=== PATIENT | male | born 1960 | race African-American/Black ===

== ENCOUNTER 2018-11-03 10:09 | Inpatient (IN) | payer MEDICAID ==
[~2018-11-03] VITALS: Ht 172.7 cm; Wt 95.3 kg
[~2018-11-03 10:09] MED LIST: AMLO10TA80 PO; CARV25TA47 PO; DIGO125T82 PO; ELIQUIS 5 MG PO; FURO-151 PO; GLIP5TAB12 PO; HYDR100T26 PO; LISI10TA5 PO; LOSA50TA20 PO; METO-539 PO; POTA10TA11 PO
[2018-11-03 11:14] LABS: BASOPHILS % 0.5 % (0.0-2.0); EOSINOPHILS % 1.6 % (0.0-5.0); HEMATOCRIT. 41.1 % (42.0-52.0); HEMOGLOBIN. 13.2 g/dL (14.0-18.0); LYMPHOCYTES % 10.9 % (20.0-50.0); MEAN CORPUSCULAR HEMOGLOBIN 29.2 pg (28.0-32.0); MEAN CORPUSCULAR VOLUME 90.9 fL (80.0-94.0); MEAN PLATELET VOLUME 9.1 fl (7.4-10.4); MONOCYTES % 6.2 % (2.0-8.0); NEUTROPHILS % 80.8 % (40.0-76.0); PLATELET 152 x1000/uL (130-400); RED BLOOD CELL COUNT 4.52 mill/uL (4.7-6.1); RED CELL DISTRIBUTION WIDTH 16.4 % (11.6-14.6)
[2018-11-03 11:24] LABS: CHLORIDE 107 mEq/L (98-107)
[2018-11-03] MEDS ORDERED: FUROSEMIDE 40MG/4ML VIAL IVP NR (14:00)
[2018-11-03] MEDS ORDERED: NA PHOS,M-B/NA PHOS,DI-BA ENEMA 118ML PR PRN (14:15)
[2018-11-03] MEDS ORDERED: DOCUSATE SODIUM 100MG CAPSULE PO PRN (14:15)
[2018-11-03] MEDS ORDERED: MORPHINE SULFATE 4 MG/ML CPJ (NOT FOR IM USE) IV PRN (14:15)
[2018-11-03] MEDS ORDERED: LORAZEPAM 2MG/ML CPJ IV PRN (14:15)
[2018-11-03] MEDS ORDERED: GUAIFENESIN 200MG/10ML SUGAR FREE UDC PO PRN (14:15)
[2018-11-03] MEDS ORDERED: ACETAMINOPHEN 325MG TABLET PO PRN (14:15)
[2018-11-03] MEDS ORDERED: DIPHENHYDRAMINE 50MG/ML VIAL IV PRN (14:15)
[2018-11-03] MEDS ORDERED: IPRATROPIUM/ALBUTEROL 0.5-3(2.5)MG/3ML NEB INH PRN (14:15)
[2018-11-03] MEDS ORDERED: MAGNESIUM/ALUMINUM HYDROXIDE/SIMETHICONE 30ML UDC PO PRN (14:15)
[2018-11-03] MEDS ORDERED: ENOXAPARIN 40MG/0.4ML SYR SUBCUT SCH (14:15)
[2018-11-03] MEDS ORDERED: CLONIDINE 0.1MG TABLET PO PRN (14:15)
[2018-11-03] MEDS ORDERED: ONDANSETRON HCL 4MG/2ML INJ IV PRN (14:15)
[2018-11-03] MEDS ORDERED: DILTIAZEM HCL 5MG/ML 5ML VIAL IV PRN (16:15)
[2018-11-03 16:17] VITALS: BP 158/102
[2018-11-03 16:54] LABS: *AMPHETAMINES SCREEN URINE NEGATIVE (NEGATIVE); *BARBITURATES SCREEN URINE NEGATIVE (NEGATIVE); *BENZODIAZEPINES SCREEN URINE NEGATIVE (NEGATIVE); *COCAINE SCREEN URINE NEGATIVE (NEGATIVE); CANNABINOID URINE SCREEN NEGATIVE (NEGATIVE); METHADONE URINE SCREEN NEGATIVE (NEGATIVE); OPIATES URINE SCREEN NEGATIVE (NEGATIVE)
[2018-11-03 16:55] LABS: PHENCYCLIDINE URINE SCREEN NEGATIVE (NEGATIVE)
[2018-11-03] MEDS ORDERED: ASPI-1158 PO (17:33)
[2018-11-03] MEDS ORDERED: ATOR80TA MT (17:33)
[2018-11-03] MEDS: CARVEDILOL 25MG TABLET PO SCH (18:22)
[2018-11-03] MEDS: DIGOXIN 125MCG TABLET PO SCH (18:22)
[2018-11-03] MEDS: APIXABAN 5 MG TABLET PO SCH (18:22)
[2018-11-03 20:00] VITALS: BP 133/83
[2018-11-03] MEDS: HYDROCODONE/ACETAMINOPHEN 5/325MG TABLET PO PRN (20:42)
[2018-11-03] MEDS: FUROSEMIDE 40MG/4ML VIAL IV SCH (20:43)
[2018-11-03 21:34] VITALS: BP 130/82
[2018-11-03] MEDS: HYDRALAZINE HCL 50MG TABLET PO SCH (21:38)
[2018-11-04] VITALS: BP 127/77
[2018-11-04 04:00] VITALS: BP 127/84
[2018-11-04 06:17] LABS: BASOPHILS % 0.6 % (0.0-2.0); EOSINOPHILS % 2.7 % (0.0-5.0); HEMATOCRIT. 38.8 % (42.0-52.0); HEMOGLOBIN. 12.5 g/dL (14.0-18.0); LYMPHOCYTES % 19.7 % (20.0-50.0); MEAN CORPUSCULAR VOLUME 89.8 fL (80.0-94.0); MEAN PLATELET VOLUME 9.1 fl (7.4-10.4); MONOCYTES % 9.8 % (2.0-8.0); NEUTROPHILS % 67.2 % (40.0-76.0); PLATELET 141 x1000/uL (130-400); RED BLOOD CELL COUNT 4.32 mill/uL (4.7-6.1); RED CELL DISTRIBUTION WIDTH 15.6 % (11.6-14.6)
[2018-11-04 06:28] LABS: CHLORIDE 103 mEq/L (98-107)
[2018-11-04] MEDS: HYDRALAZINE HCL 50MG TABLET PO SCH ×3 (06:30→21:23)
[2018-11-04] MEDS: FUROSEMIDE 40MG/4ML VIAL IV SCH ×2 (06:31→16:24)
[2018-11-04 06:39] LABS: LDL CHOLESTEROL 88 mg/dL (5-100)
[2018-11-04 06:40] LABS: HDL CHOLESTEROL 33 mg/dL (40-59)
[2018-11-04 06:43] LABS: T4 FREE 1.21 ng/dL (0.76-1.46)
[2018-11-04 08:00] VITALS: BP 147/82
[2018-11-04] MEDS: CARVEDILOL 25MG TABLET PO SCH ×2 (08:26→21:23)
[2018-11-04] MEDS: LOSARTAN POTASSIUM 100 MG TABLET PO SCH (08:26)
[2018-11-04] MEDS: ASPIRIN 81MG EC TABLET PO SCH (08:27)
[2018-11-04] MEDS: APIXABAN 5 MG TABLET PO SCH ×2 (08:27→16:24)
[2018-11-04 12:00] VITALS: BP 141/79
[2018-11-04 16:46] VITALS: BP 139/87
[2018-11-04] MEDS: DIGOXIN 125MCG TABLET PO SCH (17:05)
[2018-11-04 20:00] VITALS: BP 134/85
[2018-11-05] VITALS: BP 138/85
[2018-11-05] MEDS: HYDROCODONE/ACETAMINOPHEN 5/325MG TABLET PO PRN (03:19)
[2018-11-05 04:00] VITALS: BP 135/73
[2018-11-05] MEDS: HYDRALAZINE HCL 50MG TABLET PO SCH (06:17)
[2018-11-05] MEDS: FUROSEMIDE 40MG/4ML VIAL IV SCH (06:32)
[2018-11-05 08:07] LABS: EOSINOPHILS % 2.9 % (0.0-5.0); HEMATOCRIT. 41.5 % (42.0-52.0); HEMOGLOBIN. 13.2 g/dL (14.0-18.0); LYMPHOCYTES % 13.3 % (20.0-50.0); MEAN CORPUSCULAR HEMOGLOBIN 28.8 pg (28.0-32.0); MEAN CORPUSCULAR VOLUME 90.3 fL (80.0-94.0); MEAN PLATELET VOLUME 8.7 fl (7.4-10.4); MONOCYTES % 7.6 % (2.0-8.0); NEUTROPHILS % 75.2 % (40.0-76.0); PLATELET 169 x1000/uL (130-400); RED BLOOD CELL COUNT 4.59 mill/uL (4.7-6.1); RED CELL DISTRIBUTION WIDTH 15.6 % (11.6-14.6)
[2018-11-05 08:30] VITALS: BP 151/85
[2018-11-05] MEDS: ASPIRIN 81MG EC TABLET PO SCH (08:41)
[2018-11-05] MEDS: LOSARTAN POTASSIUM 100 MG TABLET PO SCH (08:41)
[2018-11-05] MEDS: APIXABAN 5 MG TABLET PO SCH (08:41)
[2018-11-05] MEDS: CARVEDILOL 25MG TABLET PO SCH (08:41)
[2018-11-05 10:33] VITALS: BP 151/85
== END 2018-11-05 12:00 | disposition home or self-care (01) | DRG 133 ==
LOC: ER 10:09 → EDBEDREQTM 14:18 → EDBEDREQ 14:18 → ENRESERV 15:27 → 8WST 16:00
PROVIDERS: ADMIT Internal Medicine; ATTEND Internal Medicine
DX: J96.00 Acute respiratory failure, unspecified whether with hypoxia or hypercapnia (principal); I50.43 Acute on chronic combined systolic (congestive) and diastolic (congestive) heart failure; E11.22 Type 2 diabetes mellitus with diabetic chronic kidney disease; I27.20 Pulmonary hypertension, unspecified; I08.1 Rheumatic disorders of both mitral and tricuspid valves; I13.0 Hypertensive heart and chronic kidney disease with heart failure and stage 1 through stage 4 chronic kidney disease, or unspecified chronic kidney disease; N18.9 Chronic kidney disease, unspecified; I48.2 Chronic atrial fibrillation; R56.9 Unspecified convulsions; I25.10 Atherosclerotic heart disease of native coronary artery without angina pectoris; Z79.01 Long term (current) use of anticoagulants; Z79.82 Long term (current) use of aspirin; Z79.84 Long term (current) use of oral hypoglycemic drugs; Z79.899 Other long term (current) drug therapy; Z82.49 Family history of ischemic heart disease and other diseases of the circulatory system; Z99.2 Dependence on renal dialysis
CPT/HCPCS: 36415; 71045; 80048; 80061; 80162; 80305; 83036; 83735; 83880; 84439; 84443; 84484; 93005; 93306; 93970; 96374; 99285; J1940

== ENCOUNTER 2019-06-28 14:04 | Inpatient (IN) | payer MEDICAID ==
[~2019-06-28] VITALS: Ht 172.7 cm; Wt 106.6 kg
[~2019-06-28 14:04] MED LIST changes: +ASPI-1158 PO; +ATOR80TA MT; -LOSA50TA20 PO; +LOSA50TA41 PO
[2019-06-28] MEDS ORDERED: FUROSEMIDE 40MG/4ML VIAL IV ONE (14:45)
[2019-06-28] MEDS ORDERED: NITROGLYCERIN OINT 1GM/INCH UDPKT TD ONE (14:45)
[2019-06-28 15:01] LABS: BASOPHILS % 1.1 % (0.0-2.0); EOSINOPHILS % 1.5 % (0.0-5.0); HEMATOCRIT. 37.8 % (42.0-52.0); HEMOGLOBIN. 12.3 g/dL (14.0-18.0); LYMPHOCYTES % 13.5 % (20.0-50.0); MEAN CORPUSCULAR HEMOGLOBIN 29.2 pg (28.0-32.0); MEAN CORPUSCULAR VOLUME 89.7 fL (80.0-94.0); MEAN PLATELET VOLUME 8.7 fl (7.4-10.4); MONOCYTES % 6.3 % (2.0-8.0); NEUTROPHILS % 77.6 % (40.0-76.0); PLATELET 151 x1000/uL (130-400); RED BLOOD CELL COUNT 4.21 mill/uL (4.7-6.1); RED CELL DISTRIBUTION WIDTH 16.7 % (11.6-14.6)
[2019-06-28 15:05] LABS: CHLORIDE 106 mEq/L (98-107); INR 1.2
[2019-06-28] MEDS ORDERED: IPRATROPIUM/ALBUTEROL 0.5-3(2.5)MG/3ML NEB HHN PRN (17:15)
[2019-06-28] MEDS ORDERED: CLONIDINE 0.1MG TABLET PO PRN (17:15)
[2019-06-28] MEDS ORDERED: LORAZEPAM 0.5MG TABLET PO PRN (17:15)
[2019-06-28] MEDS ORDERED: MAGNESIUM/ALUMINUM HYDROXIDE/SIMETHICONE 30ML UDC PO PRN (17:15)
[2019-06-28] MEDS ORDERED: GUAIFENESIN 200MG/10ML SUGAR FREE UDC PO PRN (17:15)
[2019-06-28] MEDS ORDERED: ONDANSETRON HCL 4MG/2ML INJ IV PRN (17:15)
[2019-06-28] MEDS ORDERED: DOCUSATE SODIUM 100MG CAPSULE PO PRN (17:15)
[2019-06-28] MEDS ORDERED: NITROGLYCERIN 0.4MG TABLET SL SL PRN (17:15)
[2019-06-28] MEDS ORDERED: ACETAMINOPHEN 325MG TABLET PO PRN (17:15)
[2019-06-28] MEDS ORDERED: KETOROLAC 15MG/ML VIAL IV PRN (17:15)
[2019-06-28] MEDS ORDERED: ZOLPIDEM TARTRATE 5MG TABLET PO PRN (17:15)
[2019-06-28] MEDS ORDERED: DEXTROSE 50% WATER 50ML SYRINGE IV PRN (17:15)
[2019-06-28 18:30] VITALS: BP 148/100
[2019-06-28 20:00] VITALS: BP 155/99
[2019-06-28] MEDS: FUROSEMIDE 40MG/4ML VIAL IVP SCH (20:32)
[2019-06-28] MEDS: DILTIAZEM HCL 60MG TABLET PO SCH (20:33)
[2019-06-28] MEDS: FAMOTIDINE 20MG TABLET PO SCH (20:34)
[2019-06-28] MEDS: APIXABAN 5 MG TABLET PO SCH (20:35)
[2019-06-28] MEDS: SPIRONOLACTONE 25MG TABLET PO SCH (20:36)
[2019-06-28] MEDS: INSULIN LISPRO 100 UNITS/ML SUBCUT SCH ×2 (20:46→20:47)
[2019-06-28] MEDS: BLOOD SUGAR DIAGNOSTIC STRIP TEST SCH (20:47)
[2019-06-28 21:00] VITALS: BP 155/99
[2019-06-28] MEDS: LISINOPRIL 5MG TABLET PO SCH (23:15)
[2019-06-29] VITALS: BP 144/87
[2019-06-29 00:25] LABS: CREATINE KINASE MB FRACTION 1.4 ng/mL (0.5-3.6)
[2019-06-29] MEDS ORDERED: FURO80TA3 PO (02:25)
[2019-06-29] MEDS ORDERED: LOSA100T32 PO (02:25)
[2019-06-29 04:00] VITALS: BP 126/78
[2019-06-29] MEDS: DILTIAZEM HCL 60MG TABLET PO SCH ×4 (06:00→17:06)
[2019-06-29 07:07] LABS: CREATINE KINASE MB FRACTION 1.1 ng/mL (0.5-3.6)
[2019-06-29 08:00] VITALS: BP 143/92
[2019-06-29] MEDS: SPIRONOLACTONE 25MG TABLET PO SCH ×2 (09:23→20:30)
[2019-06-29] MEDS: ASPIRIN 325MG EC TABLET PO SCH (09:23)
[2019-06-29] MEDS: FAMOTIDINE 20MG TABLET PO SCH ×2 (09:23→20:30)
[2019-06-29] MEDS: APIXABAN 5 MG TABLET PO SCH ×2 (09:23→20:30)
[2019-06-29] MEDS: FUROSEMIDE 40MG/4ML VIAL IVP SCH ×2 (09:24→20:30)
[2019-06-29] MEDS: LISINOPRIL 5MG TABLET PO SCH ×2 (09:24→20:30)
[2019-06-29 12:00] VITALS: BP 140/92
[2019-06-29] MEDS: INSULIN LISPRO 100 UNITS/ML SUBCUT SCH ×3 (12:15→21:00)
[2019-06-29] MEDS: BLOOD SUGAR DIAGNOSTIC STRIP TEST SCH ×3 (12:16→20:31)
[2019-06-29] MEDS ORDERED: METOLAZONE 10MG TABLET PO NR (13:00)
[2019-06-29 16:00] VITALS: BP 129/77
[2019-06-29 18:03] LABS: *AMPHETAMINES SCREEN URINE NEGATIVE (NEGATIVE); *BARBITURATES SCREEN URINE NEGATIVE (NEGATIVE); *BENZODIAZEPINES SCREEN URINE NEGATIVE (NEGATIVE); *COCAINE SCREEN URINE NEGATIVE (NEGATIVE); METHADONE URINE SCREEN NEGATIVE (NEGATIVE); OPIATES URINE SCREEN NEGATIVE (NEGATIVE)
[2019-06-29 18:04] LABS: CANNABINOID URINE SCREEN NEGATIVE (NEGATIVE); PHENCYCLIDINE URINE SCREEN NEGATIVE (NEGATIVE)
[2019-06-29 20:00] VITALS: BP 145/95
[2019-06-30] VITALS: BP 175/87
[2019-06-30] MEDS: DILTIAZEM HCL 60MG TABLET PO SCH ×3 (01:25→12:00)
[2019-06-30 04:00] VITALS: BP 131/97
[2019-06-30] MEDS: BLOOD SUGAR DIAGNOSTIC STRIP TEST SCH ×2 (06:52→12:17)
[2019-06-30] MEDS: INSULIN LISPRO 100 UNITS/ML SUBCUT SCH ×2 (06:57→12:15)
[2019-06-30 07:58] LABS: CHLORIDE 96 mEq/L (98-107)
[2019-06-30 08:00] VITALS: BP 158/113
[2019-06-30] MEDS: LISINOPRIL 5MG TABLET PO SCH (10:28)
[2019-06-30] MEDS: SPIRONOLACTONE 25MG TABLET PO SCH (10:29)
[2019-06-30] MEDS: FUROSEMIDE 40MG/4ML VIAL IVP SCH (10:29)
[2019-06-30] MEDS: FAMOTIDINE 20MG TABLET PO SCH (10:29)
[2019-06-30] MEDS: APIXABAN 5 MG TABLET PO SCH (10:29)
[2019-06-30] MEDS: ASPIRIN 325MG EC TABLET PO SCH (10:29)
[2019-06-30 11:05] VITALS: BP 158/113
== END 2019-06-30 13:15 | disposition home or self-care (01) | DRG 194 ==
LOC: ER 14:04 → 5WST 16:25 → EDBEDREQ 16:31 → EDBEDREQTM 16:31 → ENRESERV 17:34
PROVIDERS: ADMIT Internal Medicine; ATTEND Internal Medicine
DX: I13.0 Hypertensive heart and chronic kidney disease with heart failure and stage 1 through stage 4 chronic kidney disease, or unspecified chronic kidney disease (principal); N17.0 Acute kidney failure with tubular necrosis; J96.00 Acute respiratory failure, unspecified whether with hypoxia or hypercapnia; I50.33 Acute on chronic diastolic (congestive) heart failure; E11.22 Type 2 diabetes mellitus with diabetic chronic kidney disease; I27.20 Pulmonary hypertension, unspecified; I48.91 Unspecified atrial fibrillation; N18.9 Chronic kidney disease, unspecified; E78.00 Pure hypercholesterolemia, unspecified; I34.0 Nonrheumatic mitral (valve) insufficiency; Z79.01 Long term (current) use of anticoagulants; Z79.899 Other long term (current) drug therapy; Z82.49 Family history of ischemic heart disease and other diseases of the circulatory system
CPT/HCPCS: 36415; 71045; 80048; 80061; 80305; 82550; 82553; 82962; 83036; 83880; 84484; 93005; 93306; 93970; 96374; 99291; J1940

== ENCOUNTER 2020-05-27 16:10 | Inpatient (IN) | payer MEDICAID ==
[~2020-05-27] VITALS: Ht 172.7 cm; Wt 112.5 kg
[~2020-05-27 16:10] MED LIST changes: +DIGO125T80 PO; -DIGO125T82 PO; -FURO-151 PO; +FURO80TA3 PO; -LISI10TA5 PO; +LOSA100T32 PO; -LOSA50TA41 PO; -METO-539 PO; -POTA10TA11 PO
[2020-05-27] MEDS ORDERED: FUROSEMIDE 40MG/4ML VIAL IV ONE (16:45)
[2020-05-27 21:53] LABS: CHLORIDE 101 mEq/L (98-107)
[2020-05-27 21:56] LABS: INR 1.1; PROTHROMBIN TIME 11.9 sec (9.6-11.0)
[2020-05-27 22:01] LABS: BASOPHILS % 0.5 % (0.0-2.0); EOSINOPHILS % 0.7 % (0.0-5.0); LYMPHOCYTES % 13.2 % (20.0-50.0); MEAN CORPUSCULAR HEMOGLOBIN 22.8 pg (28.0-32.0); MEAN CORPUSCULAR VOLUME 76.3 fL (80.0-94.0); MEAN PLATELET VOLUME 8.4 fl (7.4-10.4); MONOCYTES % 8.7 % (2.0-8.0); NEUTROPHILS % 76.9 % (40.0-76.0); PLATELET 170 x1000/uL (130-400); RED BLOOD CELL COUNT 2.86 mill/uL (4.7-6.1); RED CELL DISTRIBUTION WIDTH 21.4 % (11.6-14.6)
[2020-05-27 22:08] LABS: HEMATOCRIT. 21.8 % (42.0-52.0); HEMOGLOBIN. 6.5 g/dL (14.0-18.0)
[2020-05-28] MEDS ORDERED: ONDANSETRON HCL 4MG/2ML INJ IV PRN (09:00)
[2020-05-28] MEDS ORDERED: IPRATROPIUM/ALBUTEROL 0.5-3(2.5)MG/3ML NEB HHN PRN (09:00)
[2020-05-28 11:36] LABS: PHOSPHORUS 5.6 mg/dL (2.5-4.9)
[2020-05-28 11:58] LABS: FOLIC ACID (FOLATE) SERUM 13.9 ng/mL (>5.38)
[2020-05-28 16:10] VITALS: BP 134/81
[2020-05-28 17:00] VITALS: BP 134/81
[2020-05-28 20:00] VITALS: BP 155/91
[2020-05-28] MEDS: DIPHENHYDRAMINE 50MG/ML VIAL IV PRN (23:35)
[2020-05-28] MEDS: ACETAMINOPHEN 650MG/20.3ML UDC GT PRN (23:56)
[2020-05-28] MEDS: CLONIDINE 0.1MG TABLET PO PRN (23:56)
[2020-05-29] VITALS (11 sets, daily range): BP systolic 103–155; BP diastolic 53–76
[2020-05-29 01:58] LABS: HEMATOCRIT 24.2 % (42.0-52.0); HEMOGLOBIN 7.1 g/dL (14.0-18.0)
[2020-05-29] MEDS: ACETAMINOPHEN 650MG/20.3ML UDC GT PRN (06:30)
[2020-05-29 07:09] LABS: BASOPHILS % 0.5 % (0.0-2.0); EOSINOPHILS % 0.5 % (0.0-5.0); LYMPHOCYTES % 9.5 % (20.0-50.0); MEAN CORPUSCULAR HEMOGLOBIN 23.2 pg (28.0-32.0); MEAN PLATELET VOLUME 8.4 fl (7.4-10.4); MONOCYTES % 11.7 % (2.0-8.0); NEUTROPHILS % 77.8 % (40.0-76.0); PLATELET 161 x1000/uL (130-400); RED BLOOD CELL COUNT 2.86 mill/uL (4.7-6.1); RED CELL DISTRIBUTION WIDTH 21.3 % (11.6-14.6)
[2020-05-29 07:15] LABS: HEMOGLOBIN. 6.7 g/dL (14.0-18.0)
[2020-05-29 07:40] LABS: CHLORIDE 102 mEq/L (98-107)
[2020-05-29 07:53] LABS: LDL CHOLESTEROL 67 mg/dL (5-100)
[2020-05-29 07:54] LABS: HDL CHOLESTEROL 29 mg/dL (40-59)
[2020-05-29] MEDS: FUROSEMIDE 40MG/4ML VIAL IVP SCH (09:50)
[2020-05-29] MEDS: PANTOPRAZOLE SODIUM 40 MG/VIAL IV SCH (12:33)
[2020-05-29] MEDS ORDERED: DOCUSATE SODIUM 100MG CAPSULE PO PRN (14:00)
[2020-05-29] MEDS: FERROUS SULFATE 325MG TABLET PO SCH (17:45)
[2020-05-30] VITALS (8 sets, daily range): BP systolic 103–151; BP diastolic 50–83
[2020-05-30 06:14] LABS: BASOPHILS % 0.4 % (0.0-2.0); EOSINOPHILS % 1.2 % (0.0-5.0); HEMATOCRIT. 26.2 % (42.0-52.0); HEMOGLOBIN. 8.1 g/dL (14.0-18.0); MEAN CORPUSCULAR HEMOGLOBIN 24.2 pg (28.0-32.0); MEAN CORPUSCULAR VOLUME 78.8 fL (80.0-94.0); MEAN PLATELET VOLUME 8.7 fl (7.4-10.4); MONOCYTES % 10.7 % (2.0-8.0); NEUTROPHILS % 75.7 % (40.0-76.0); PLATELET 160 x1000/uL (130-400); RED BLOOD CELL COUNT 3.33 mill/uL (4.7-6.1); RED CELL DISTRIBUTION WIDTH 21.1 % (11.6-14.6)
[2020-05-30] MEDS: FUROSEMIDE 40MG/4ML VIAL IVP SCH (08:34)
[2020-05-30] MEDS: FERROUS SULFATE 325MG TABLET PO SCH ×3 (08:34→16:56)
[2020-05-30] MEDS: PANTOPRAZOLE SODIUM 40 MG/VIAL IV SCH (11:10)
[2020-05-30] MEDS ORDERED: DEXTROSE 50% WATER 50ML SYRINGE IV PRN ×2 (11:15)
[2020-05-30] MEDS: BLOOD SUGAR DIAGNOSTIC STRIP TEST SCH ×3 (12:29→20:35)
[2020-05-30] MEDS: INSULIN LISPRO 100 UNITS/ML SUBCUT SCH ×3 (12:40→20:36)
[2020-05-30] MEDS: DILTIAZEM HCL 30MG TABLET PO SCH ×2 (14:06→21:56)
[2020-05-31] VITALS: BP 105/61
[2020-05-31 04:00] VITALS: BP 117/75
[2020-05-31] MEDS: DILTIAZEM HCL 30MG TABLET PO SCH ×4 (05:13→21:01)
[2020-05-31 06:09] LABS: BASOPHILS % 0.8 % (0.0-2.0); EOSINOPHILS % 1.3 % (0.0-5.0); HEMATOCRIT. 27.8 % (42.0-52.0); HEMOGLOBIN. 8.3 g/dL (14.0-18.0); LYMPHOCYTES % 13.4 % (20.0-50.0); MEAN CORPUSCULAR HEMOGLOBIN 23.6 pg (28.0-32.0); MEAN CORPUSCULAR VOLUME 78.8 fL (80.0-94.0); MEAN PLATELET VOLUME 8.7 fl (7.4-10.4); MONOCYTES % 9.7 % (2.0-8.0); NEUTROPHILS % 74.8 % (40.0-76.0); PLATELET 171 x1000/uL (130-400); RED BLOOD CELL COUNT 3.52 mill/uL (4.7-6.1); RED CELL DISTRIBUTION WIDTH 21.7 % (11.6-14.6)
[2020-05-31] MEDS: INSULIN LISPRO 100 UNITS/ML SUBCUT SCH ×4 (07:50→20:45)
[2020-05-31] MEDS: BLOOD SUGAR DIAGNOSTIC STRIP TEST SCH ×4 (07:57→20:37)
[2020-05-31 08:00] VITALS: BP 124/62
[2020-05-31] MEDS: FUROSEMIDE 40MG/4ML VIAL IVP SCH (09:24)
[2020-05-31] MEDS: FERROUS SULFATE 325MG TABLET PO SCH ×3 (09:24→18:16)
[2020-05-31 12:00] VITALS: BP 114/69
[2020-05-31] MEDS: PANTOPRAZOLE SODIUM 40 MG/VIAL IV SCH (12:31)
[2020-05-31 16:00] VITALS: BP 119/77
[2020-05-31 20:00] VITALS: BP 120/73
[2020-06-01] VITALS (10 sets, daily range): BP systolic 113–171; BP diastolic 68–89
[2020-06-01 06:21] LABS: CHLORIDE 102 mEq/L (98-107)
[2020-06-01] MEDS: DILTIAZEM HCL 30MG TABLET PO SCH ×2 (06:40→15:14)
[2020-06-01] MEDS: BLOOD SUGAR DIAGNOSTIC STRIP TEST SCH ×4 (06:40→20:07)
[2020-06-01 07:13] LABS: BASOPHILS % 0.7 % (0.0-2.0); EOSINOPHILS % 1.2 % (0.0-5.0); HEMATOCRIT. 27.2 % (42.0-52.0); HEMOGLOBIN. 8.2 g/dL (14.0-18.0); LYMPHOCYTES % 11.5 % (20.0-50.0); MEAN CORPUSCULAR HEMOGLOBIN 24.2 pg (28.0-32.0); MEAN CORPUSCULAR VOLUME 80.3 fL (80.0-94.0); MEAN PLATELET VOLUME 8.9 fl (7.4-10.4); MONOCYTES % 10.4 % (2.0-8.0); NEUTROPHILS % 76.2 % (40.0-76.0); PLATELET 162 x1000/uL (130-400); RED BLOOD CELL COUNT 3.38 mill/uL (4.7-6.1); RED CELL DISTRIBUTION WIDTH 21.6 % (11.6-14.6)
[2020-06-01] MEDS: INSULIN LISPRO 100 UNITS/ML SUBCUT SCH ×4 (07:32→21:47)
[2020-06-01] MEDS: FERROUS SULFATE 325MG TABLET PO SCH ×3 (07:50→18:10)
[2020-06-01] MEDS ORDERED: LIDOCAINE HCL 1% 20ML VIAL (Pyxis) INJ ONE (08:17)
[2020-06-01] MEDS ORDERED: GENTAMICIN SULF 40MG/ML 2ML VIAL ONE (08:17)
[2020-06-01] MEDS ORDERED: CEFAZOLIN 1000MG PREMIX 100 ML IV ONE (08:17)
[2020-06-01] MEDS ORDERED: IOHEXOL-300 100 ML BOTTLE ONE (08:17)
[2020-06-01] MEDS ORDERED: GENTAMICIN/NS IRRIGATION 500 ML IR ONE (08:18)
[2020-06-01] MEDS ORDERED: MIDAZOLAM HCL 2 MG/2 ML VIAL ONE (08:18)
[2020-06-01] MEDS ORDERED: FENTANYL CITRATE/PF 50MCG/ML 2ML VIAL ONE (08:18)
[2020-06-01] MEDS: FUROSEMIDE 40MG/4ML VIAL IVP SCH (09:00)
[2020-06-01] MEDS ORDERED: DIPHENHYDRAMINE 50MG/ML VIAL ONE (09:30)
[2020-06-01] MEDS: PANTOPRAZOLE SODIUM 40 MG/VIAL IV SCH (12:00)
[2020-06-01] MEDS: LACTULOSE 20G/30ML UDC PO SCH ×2 (15:14→23:16)
[2020-06-01] MEDS: CLONIDINE 0.1MG TABLET PO PRN (16:28)
[2020-06-01] MEDS ORDERED: CEFAZOLIN 1000MG PREMIX 50 ML IV SCH (17:45)
[2020-06-01] MEDS: APIXABAN 5 MG TABLET PO SCH (18:10)
[2020-06-01] MEDS: SILDENAFIL CITRATE 20MG TABLET PO SCH (18:10)
[2020-06-01] MEDS: HYDROCODONE/ACETAMINOPHEN 5/325MG TABLET PO PRN (19:54)
[2020-06-01] MEDS: CEFAZOLIN 1000MG PREMIX 50 ML IV SCH (20:03)
[2020-06-01] MEDS: DILTIAZEM HCL 60MG TABLET PO SCH (21:46)
[2020-06-02] VITALS (14 sets, daily range): BP systolic 99–171; BP diastolic 45–114
[2020-06-02] MEDS: CLONIDINE 0.1MG TABLET PO PRN ×2 (04:27→10:26)
[2020-06-02] MEDS: CEFAZOLIN 1000MG PREMIX 50 ML IV SCH (04:27)
[2020-06-02] MEDS: ACETAMINOPHEN 650MG/20.3ML UDC GT PRN ×3 (04:32→21:59)
[2020-06-02] MEDS: LACTULOSE 20G/30ML UDC PO SCH ×3 (05:54→22:56)
[2020-06-02] MEDS: DILTIAZEM HCL 60MG TABLET PO SCH (05:58)
[2020-06-02] MEDS: BLOOD SUGAR DIAGNOSTIC STRIP TEST SCH ×4 (05:59→21:34)
[2020-06-02 06:22] LABS: HEMATOCRIT. 26.4 % (42.0-52.0); MEAN CORPUSCULAR HEMOGLOBIN 24.6 pg (28.0-32.0); MEAN CORPUSCULAR VOLUME 81.5 fL (80.0-94.0); MEAN PLATELET VOLUME 8.4 fl (7.4-10.4); PLATELET 165 x1000/uL (130-400); RED BLOOD CELL COUNT 3.24 mill/uL (4.7-6.1); RED CELL DISTRIBUTION WIDTH 22.2 % (11.6-14.6)
[2020-06-02 06:33] LABS: CHLORIDE 102 mEq/L (98-107)
[2020-06-02] MEDS: INSULIN LISPRO 100 UNITS/ML SUBCUT SCH ×4 (07:20→21:00)
[2020-06-02] MEDS ORDERED: SODIUM POLYSTYRENE SULFONATE 15 G/60 ML BOT PO NR (09:30)
[2020-06-02 09:39] LABS: PLATELET ESTIMATE NORMAL
[2020-06-02] MEDS: FERROUS SULFATE 325MG TABLET PO SCH ×3 (09:56→21:34)
[2020-06-02] MEDS: APIXABAN 5 MG TABLET PO SCH ×2 (09:57→21:33)
[2020-06-02] MEDS: FUROSEMIDE 40MG/4ML VIAL IVP SCH (09:57)
[2020-06-02] MEDS: SILDENAFIL CITRATE 20MG TABLET PO SCH ×2 (09:57→21:33)
[2020-06-02] MEDS ORDERED: IRON SUCROSE COMPLEX 100 MG/5 ML ML IV NR (10:00)
[2020-06-02] MEDS: LISINOPRIL 20MG TABLET PO SCH ×2 (11:22→21:00)
[2020-06-02] MEDS: PANTOPRAZOLE SODIUM 40 MG/VIAL IV SCH (13:42)
[2020-06-02] MEDS: DILTIAZEM HCL 90MG TABLET PO SCH ×2 (14:47→22:00)
[2020-06-02] MEDS ORDERED: CARSR90 MT (17:07)
[2020-06-02] MEDS ORDERED: REV20 PO (17:07)
[2020-06-02] MEDS ORDERED: FERR325T23 PO (17:07)
[2020-06-02] MEDS ORDERED: COR12 PO (17:53)
[2020-06-02] MEDS: HYDROCODONE/ACETAMINOPHEN 5/325MG TABLET PO PRN (20:28)
[2020-06-02] MEDS: CARVEDILOL 12.5MG TABLET PO SCH (21:00)
[2020-06-03] VITALS (12 sets, daily range): BP systolic 93–159; BP diastolic 48–121
[2020-06-03] MEDS: DILTIAZEM HCL 90MG TABLET PO SCH ×3 (06:00→22:00)
[2020-06-03] MEDS: LACTULOSE 20G/30ML UDC PO SCH ×2 (06:11→13:31)
[2020-06-03] MEDS: BLOOD SUGAR DIAGNOSTIC STRIP TEST SCH ×4 (06:12→20:37)
[2020-06-03] MEDS: INSULIN LISPRO 100 UNITS/ML SUBCUT SCH ×4 (07:20→20:37)
[2020-06-03] MEDS: APIXABAN 5 MG TABLET PO SCH ×2 (09:06→18:06)
[2020-06-03] MEDS: LISINOPRIL 20MG TABLET PO SCH ×2 (09:06→20:37)
[2020-06-03] MEDS: SILDENAFIL CITRATE 20MG TABLET PO SCH ×2 (09:07→18:13)
[2020-06-03] MEDS: CARVEDILOL 12.5MG TABLET PO SCH ×2 (09:08→20:34)
[2020-06-03] MEDS: FUROSEMIDE 40MG/4ML VIAL IVP SCH ×2 (09:08→18:06)
[2020-06-03] MEDS: FERROUS SULFATE 325MG TABLET PO SCH ×3 (09:08→18:06)
[2020-06-03 11:20] LABS: BG BASE EXCESS 4.3 mmol/L (-2.0-2.0); BG CARBOXYHEMOGLOBIN 1.3 % (0.5-1.5); BG DEOXYHEMOGLOBIN 12.7 % (0.0-5.0); BG FRACTION INSPIRED OXYGEN 21; BG HCO3 ACT 31.9 mmol/L (22.0-26.0); BG METHEMOGLOBIN 0.1 % (0.0-1.5); BG OXYGEN SATURATION 87.1 % (92.0-98.5); BG OXYHEMOGLOBIN 85.9 % (94.0-97.0); BG PH 7.289 (7.350-7.450); BG PO2 53.2 mmHg (75.0-100.0); BG SAMPLE SITE RIGHT RADIAL; BG TOTAL HEMOGLOBIN 8.7 g/dL (12.0-18.0); BG VENT MODE ROOM AIR
[2020-06-03] MEDS: PANTOPRAZOLE SODIUM 40 MG/VIAL IV SCH (11:35)
[2020-06-03] MEDS: RIFAXIMIN 550 MG TABLET PO SCH ×2 (11:35→20:38)
[2020-06-03] MEDS: ACETAMINOPHEN 650MG/20.3ML UDC GT PRN (13:31)
[2020-06-03 16:00] LABS: HEMOGLOBIN. 7.6 g/dL (14.0-18.0); MEAN CORPUSCULAR VOLUME 81.9 fL (80.0-94.0); PLATELET 162 x1000/uL (130-400); RED BLOOD CELL COUNT 3.18 mill/uL (4.7-6.1); RED CELL DISTRIBUTION WIDTH 22.6 % (11.6-14.6)
[2020-06-03 19:41] LABS: PLATELET ESTIMATE NORMAL
[2020-06-03 20:07] LABS: BG BASE EXCESS 2.4 mmol/L (-2.0-2.0); BG CARBOXYHEMOGLOBIN 1.4 % (0.5-1.5); BG DEOXYHEMOGLOBIN 4.9 % (0.0-5.0); BG FRACTION INSPIRED OXYGEN 24; BG HCO3 ACT 30.8 mmol/L (22.0-26.0); BG METHEMOGLOBIN 0.3 % (0.0-1.5); BG OXYHEMOGLOBIN 93.4 % (94.0-97.0); BG PCO2 74.6 mmHg (35.0-45.0); BG PH 7.234 (7.350-7.450); BG PO2 83.6 mmHg (75.0-100.0); BG SAMPLE SITE RIGHT RADIAL; BG TOTAL HEMOGLOBIN 8.6 g/dL (12.0-18.0); BG VENT MODE NASAL CANNULA
[2020-06-03 23:21] LABS: BG BASE EXCESS 2.2 mmol/L (-2.0-2.0); BG CARBOXYHEMOGLOBIN 1.3 % (0.5-1.5); BG DEOXYHEMOGLOBIN 5.6 % (0.0-5.0); BG FRACTION INSPIRED OXYGEN 30; BG HCO3 ACT 30.5 mmol/L (22.0-26.0); BG METHEMOGLOBIN 0.2 % (0.0-1.5); BG OXYGEN SATURATION 94.3 % (92.0-98.5); BG OXYHEMOGLOBIN 92.9 % (94.0-97.0); BG PCO2 72.7 mmHg (35.0-45.0); BG PH 7.241 (7.350-7.450); BG PO2 80.5 mmHg (75.0-100.0); BG SAMPLE SITE RIGHT RADIAL; BG TOTAL HEMOGLOBIN 8.7 g/dL (12.0-18.0); BG VENT MODE MASK - BIPAP; BG VENT RATE 16 set
[2020-06-04] VITALS (15 sets, daily range): BP systolic 93–150; BP diastolic 58–81
[2020-06-04] MEDS: LACTULOSE 20G/30ML UDC PO SCH ×4 (01:27→21:13)
[2020-06-04] MEDS: DILTIAZEM HCL 90MG TABLET PO SCH ×3 (05:36→22:11)
[2020-06-04] MEDS: BLOOD SUGAR DIAGNOSTIC STRIP TEST SCH ×4 (06:17→21:03)
[2020-06-04] MEDS: INSULIN LISPRO 100 UNITS/ML SUBCUT SCH ×4 (07:20→21:13)
[2020-06-04 07:42] LABS: BASOPHILS % 0.4 % (0.0-2.0); EOSINOPHILS % 1.7 % (0.0-5.0); HEMATOCRIT. 27.5 % (42.0-52.0); LYMPHOCYTES % 7.2 % (20.0-50.0); MEAN CORPUSCULAR HEMOGLOBIN 24.1 pg (28.0-32.0); MEAN CORPUSCULAR VOLUME 82.3 fL (80.0-94.0); MEAN PLATELET VOLUME 8.9 fl (7.4-10.4); MONOCYTES % 7.1 % (2.0-8.0); NEUTROPHILS % 83.6 % (40.0-76.0); PLATELET 185 x1000/uL (130-400); RED BLOOD CELL COUNT 3.34 mill/uL (4.7-6.1); RED CELL DISTRIBUTION WIDTH 23.3 % (11.6-14.6)
[2020-06-04] MEDS: CARVEDILOL 12.5MG TABLET PO SCH ×3 (09:36→21:12)
[2020-06-04] MEDS: FERROUS SULFATE 325MG TABLET PO SCH ×3 (09:36→17:15)
[2020-06-04] MEDS: APIXABAN 5 MG TABLET PO SCH ×2 (09:36→17:16)
[2020-06-04] MEDS: RIFAXIMIN 550 MG TABLET PO SCH ×2 (09:36→21:12)
[2020-06-04] MEDS: SILDENAFIL CITRATE 20MG TABLET PO SCH ×2 (09:36→17:15)
[2020-06-04] MEDS: LISINOPRIL 20MG TABLET PO SCH ×2 (09:36→21:13)
[2020-06-04] MEDS: FUROSEMIDE 40MG/4ML VIAL IVP SCH ×2 (09:37→17:15)
[2020-06-04] MEDS: METOLAZONE 5MG TABLET PO SCH ×2 (09:38→17:16)
[2020-06-04 10:21] LABS: BG BASE EXCESS 2.1 mmol/L (-2.0-2.0); BG CARBOXYHEMOGLOBIN 1.6 % (0.5-1.5); BG DEOXYHEMOGLOBIN 5.9 % (0.0-5.0); BG FRACTION INSPIRED OXYGEN 30; BG HCO3 ACT 30.3 mmol/L (22.0-26.0); BG METHEMOGLOBIN 0.3 % (0.0-1.5); BG OXYHEMOGLOBIN 92.2 % (94.0-97.0); BG PCO2 71.8 mmHg (35.0-45.0); BG PH 7.243 (7.350-7.450); BG PO2 75.7 mmHg (75.0-100.0); BG SAMPLE SITE RIGHT RADIAL; BG TOTAL HEMOGLOBIN 8.5 g/dL (12.0-18.0); BG VENT MODE MASK - BIPAP
[2020-06-04] MEDS ORDERED: LIDOCAINE HCL/PF 1% 2ML VIAL ONE (10:43)
[2020-06-04] MEDS: PANTOPRAZOLE SODIUM 40 MG/VIAL IV SCH (11:42)
[2020-06-04] MEDS: ACETAMINOPHEN 650MG/20.3ML UDC GT PRN (14:00)
[2020-06-04] MEDS ORDERED: METHYL SALICYLATE/MENTHOL CREAM 85GM TOP PRN (14:45)
[2020-06-04 17:18] LABS: BG BASE EXCESS 4.2 mmol/L (-2.0-2.0); BG CARBOXYHEMOGLOBIN 0.9 % (0.5-1.5); BG FRACTION INSPIRED OXYGEN 26; BG METHEMOGLOBIN 0.1 % (0.0-1.5); BG PCO2 93.1 mmHg (35.0-45.0); BG PO2 92.1 mmHg (75.0-100.0); BG SAMPLE SITE RIGHT RADIAL; BG TOTAL HEMOGLOBIN 8.6 g/dL (12.0-18.0); BG VENT MODE NASAL CANNULA
[2020-06-04 20:10] LABS: BG BASE EXCESS 1.7 mmol/L (-2.0-2.0); BG BILEVEL POS AIRWAY PRESSURE 20/5; BG CARBOXYHEMOGLOBIN 1.4 % (0.5-1.5); BG FRACTION INSPIRED OXYGEN 26; BG HCO3 ACT 28.7 mmol/L (22.0-26.0); BG METHEMOGLOBIN 0.1 % (0.0-1.5); BG OXYGEN SATURATION 95.9 % (92.0-98.5); BG OXYHEMOGLOBIN 94.5 % (94.0-97.0); BG PCO2 59.2 mmHg (35.0-45.0); BG PH 7.304 (7.350-7.450); BG SAMPLE SITE RIGHT RADIAL; BG TOTAL HEMOGLOBIN 8.8 g/dL (12.0-18.0); BG VENT MODE MASK - BIPAP
[2020-06-05] VITALS (25 sets, daily range): BP systolic 86–121; BP diastolic 53–69
[2020-06-05] MEDS: IPRATROPIUM/ALBUTEROL 0.5-3(2.5)MG/3ML NEB HHN SCH ×6 (00:19→21:46)
[2020-06-05] MEDS: DILTIAZEM HCL 90MG TABLET PO SCH ×3 (05:25→22:00)
[2020-06-05] MEDS: LACTULOSE 20G/30ML UDC PO SCH ×3 (05:25→22:42)
[2020-06-05 05:42] LABS: HEMATOCRIT. 24.9 % (42.0-52.0); HEMOGLOBIN. 7.6 g/dL (14.0-18.0); MEAN CORPUSCULAR HEMOGLOBIN 24.5 pg (28.0-32.0); MEAN PLATELET VOLUME 8.4 fl (7.4-10.4); PLATELET 180 x1000/uL (130-400); RED BLOOD CELL COUNT 3.08 mill/uL (4.7-6.1); RED CELL DISTRIBUTION WIDTH 22.9 % (11.6-14.6)
[2020-06-05] MEDS: INSULIN LISPRO 100 UNITS/ML SUBCUT SCH ×4 (08:16→20:27)
[2020-06-05] MEDS: BLOOD SUGAR DIAGNOSTIC STRIP TEST SCH ×4 (08:16→20:14)
[2020-06-05] MEDS: LISINOPRIL 20MG TABLET PO SCH ×3 (09:00→20:27)
[2020-06-05] MEDS: CARVEDILOL 12.5MG TABLET PO SCH ×2 (09:00→20:28)
[2020-06-05] MEDS: FUROSEMIDE 40MG/4ML VIAL IVP SCH ×2 (09:15→17:39)
[2020-06-05] MEDS: RIFAXIMIN 550 MG TABLET PO SCH ×2 (09:16→20:27)
[2020-06-05] MEDS: APIXABAN 5 MG TABLET PO SCH ×2 (09:16→17:39)
[2020-06-05] MEDS: SILDENAFIL CITRATE 20MG TABLET PO SCH ×2 (09:16→17:39)
[2020-06-05] MEDS: FERROUS SULFATE 325MG TABLET PO SCH ×3 (09:16→17:39)
[2020-06-05] MEDS ORDERED: LIDOCAINE HCL/PF 1% 2ML VIAL ONE (10:26)
[2020-06-05] MEDS: METOLAZONE 5MG TABLET PO SCH ×2 (10:37→17:39)
[2020-06-05 10:56] LABS: BG BASE EXCESS 1.8 mmol/L (-2.0-2.0); BG CARBOXYHEMOGLOBIN 1.3 % (0.5-1.5); BG DEOXYHEMOGLOBIN 5.1 % (0.0-5.0); BG FRACTION INSPIRED OXYGEN 24; BG HCO3 ACT 29.3 mmol/L (22.0-26.0); BG METHEMOGLOBIN 0.1 % (0.0-1.5); BG OXYGEN SATURATION 94.8 % (92.0-98.5); BG OXYHEMOGLOBIN 93.5 % (94.0-97.0); BG PCO2 60.9 mmHg (35.0-45.0); BG PO2 79.3 mmHg (75.0-100.0); BG SAMPLE SITE RIGHT RADIAL; BG TOTAL HEMOGLOBIN 10.8 g/dL (12.0-18.0); BG VENT MODE NASAL CANNULA
[2020-06-05] MEDS: PANTOPRAZOLE SODIUM 40 MG/VIAL IV SCH (12:07)
[2020-06-05 14:05] LABS: PLATELET ESTIMATE NORMAL
[2020-06-06] VITALS (18 sets, daily range): BP systolic 85–142; BP diastolic 49–68
[2020-06-06] MEDS: IPRATROPIUM/ALBUTEROL 0.5-3(2.5)MG/3ML NEB HHN SCH ×6 (01:13→21:06)
[2020-06-06] MEDS: ACETAMINOPHEN 650MG/20.3ML UDC GT PRN (02:30)
[2020-06-06] MEDS: DIPHENHYDRAMINE 50MG/ML VIAL IV PRN (03:41)
[2020-06-06 05:46] LABS: HEMATOCRIT. 25.4 % (42.0-52.0); HEMOGLOBIN. 7.8 g/dL (14.0-18.0); MEAN CORPUSCULAR HEMOGLOBIN 24.9 pg (28.0-32.0); MEAN CORPUSCULAR VOLUME 80.7 fL (80.0-94.0); MEAN PLATELET VOLUME 8.2 fl (7.4-10.4); PLATELET 193 x1000/uL (130-400); RED BLOOD CELL COUNT 3.14 mill/uL (4.7-6.1); RED CELL DISTRIBUTION WIDTH 23.6 % (11.6-14.6)
[2020-06-06] MEDS: DILTIAZEM HCL 90MG TABLET PO SCH ×3 (05:54→21:30)
[2020-06-06] MEDS: LACTULOSE 20G/30ML UDC PO SCH ×3 (06:15→21:39)
[2020-06-06] MEDS: BLOOD SUGAR DIAGNOSTIC STRIP TEST SCH ×4 (07:50→21:00)
[2020-06-06] MEDS: INSULIN LISPRO 100 UNITS/ML SUBCUT SCH ×4 (08:20→21:00)
[2020-06-06] MEDS: METOLAZONE 5MG TABLET PO SCH ×2 (09:00→17:00)
[2020-06-06] MEDS: CARVEDILOL 12.5MG TABLET PO SCH ×2 (09:00→21:00)
[2020-06-06] MEDS: LISINOPRIL 20MG TABLET PO SCH (09:00)
[2020-06-06] MEDS: APIXABAN 5 MG TABLET PO SCH ×2 (09:28→17:00)
[2020-06-06] MEDS: FUROSEMIDE 40MG/4ML VIAL IVP SCH ×2 (09:28→17:00)
[2020-06-06] MEDS: FERROUS SULFATE 325MG TABLET PO SCH ×3 (09:28→16:59)
[2020-06-06] MEDS: SILDENAFIL CITRATE 20MG TABLET PO SCH ×2 (09:28→17:00)
[2020-06-06] MEDS: RIFAXIMIN 550 MG TABLET PO SCH ×2 (09:29→21:39)
[2020-06-06] MEDS ORDERED: SORBITOL 70% SOLN 30ML PO NR (12:00)
[2020-06-06] MEDS ORDERED: DILTIAZEM HCL 90MG TABLET PO SCH (12:00)
[2020-06-06] MEDS ORDERED: POTASSIUM CHLORIDE 20MEQ TABLET SR PO NR (13:30)
[2020-06-06] MEDS: PANTOPRAZOLE SODIUM 40 MG/VIAL IV SCH (14:31)
[2020-06-06] MEDS ORDERED: FUROSEMIDE 40MG TABLET PO SCH (17:15)
[2020-06-06 17:22] LABS: PLATELET ESTIMATE NORMAL
[2020-06-06] MEDS ORDERED: LISINOPRIL 20MG TABLET PO SCH (21:00)
[2020-06-07] VITALS (13 sets, daily range): BP systolic 96–128; BP diastolic 45–81
[2020-06-07] MEDS: IPRATROPIUM/ALBUTEROL 0.5-3(2.5)MG/3ML NEB HHN SCH ×6 (00:49→22:13)
[2020-06-07] MEDS: INSULIN LISPRO 100 UNITS/ML SUBCUT SCH ×4 (06:19→21:20)
[2020-06-07] MEDS: BLOOD SUGAR DIAGNOSTIC STRIP TEST SCH ×4 (06:19→21:00)
[2020-06-07] MEDS: LACTULOSE 20G/30ML UDC PO SCH ×3 (06:34→21:21)
[2020-06-07] MEDS: DILTIAZEM HCL 90MG TABLET PO SCH (06:35)
[2020-06-07 08:06] LABS: BASOPHILS % 0.5 % (0.0-2.0); EOSINOPHILS % 2.2 % (0.0-5.0); HEMOGLOBIN. 8.6 g/dL (14.0-18.0); LYMPHOCYTES % 10.6 % (20.0-50.0); MEAN CORPUSCULAR HEMOGLOBIN 24.8 pg (28.0-32.0); MEAN CORPUSCULAR VOLUME 80.9 fL (80.0-94.0); MEAN PLATELET VOLUME 8.5 fl (7.4-10.4); MONOCYTES % 8.7 % (2.0-8.0); PLATELET 212 x1000/uL (130-400); RED BLOOD CELL COUNT 3.46 mill/uL (4.7-6.1); RED CELL DISTRIBUTION WIDTH 24.7 % (11.6-14.6)
[2020-06-07] MEDS: CARVEDILOL 12.5MG TABLET PO SCH ×2 (09:00→21:00)
[2020-06-07] MEDS: SILDENAFIL CITRATE 20MG TABLET PO SCH ×2 (09:00→17:55)
[2020-06-07] MEDS: FERROUS SULFATE 325MG TABLET PO SCH ×3 (09:15→17:54)
[2020-06-07] MEDS: METOLAZONE 5MG TABLET PO SCH ×2 (09:15→17:55)
[2020-06-07] MEDS: FUROSEMIDE 40MG/4ML VIAL IVP SCH ×2 (09:15→17:55)
[2020-06-07] MEDS: RIFAXIMIN 550 MG TABLET PO SCH ×2 (09:16→21:21)
[2020-06-07] MEDS: APIXABAN 5 MG TABLET PO SCH ×2 (09:16→17:54)
[2020-06-07] MEDS ORDERED: POTASSIUM CHLORIDE 20MEQ TABLET SR PO SCH (13:15)
[2020-06-07] MEDS: PANTOPRAZOLE SODIUM 40 MG/VIAL IV SCH (13:57)
[2020-06-07] MEDS: DILTIAZEM HCL 60MG TABLET PO SCH ×2 (14:00→21:21)
[2020-06-07 14:11] LABS: BG BASE EXCESS 3.3 mmol/L (-2.0-2.0); BG CARBOXYHEMOGLOBIN 1.2 % (0.5-1.5); BG DEOXYHEMOGLOBIN 7.4 % (0.0-5.0); BG FRACTION INSPIRED OXYGEN 21; BG HCO3 ACT 28.5 mmol/L (22.0-26.0); BG METHEMOGLOBIN 0.3 % (0.0-1.5); BG OXYGEN SATURATION 92.5 % (92.0-98.5); BG OXYHEMOGLOBIN 91.1 % (94.0-97.0); BG PCO2 46.5 mmHg (35.0-45.0); BG PH 7.405 (7.350-7.450); BG PO2 67.7 mmHg (75.0-100.0); BG SAMPLE SITE RIGHT RADIAL; BG TOTAL HEMOGLOBIN 9.3 g/dL (12.0-18.0); BG VENT MODE ROOM AIR
[2020-06-07] MEDS: ACETAMINOPHEN 650MG/20.3ML UDC GT PRN (18:00)
[2020-06-08] VITALS (7 sets, daily range): BP systolic 132–178; BP diastolic 74–103
[2020-06-08] MEDS: IPRATROPIUM/ALBUTEROL 0.5-3(2.5)MG/3ML NEB HHN SCH ×4 (01:02→12:25)
[2020-06-08] MEDS: DILTIAZEM HCL 60MG TABLET PO SCH (06:00)
[2020-06-08] MEDS: LACTULOSE 20G/30ML UDC PO SCH (06:00)
[2020-06-08] MEDS: BLOOD SUGAR DIAGNOSTIC STRIP TEST SCH ×2 (06:34→11:34)
[2020-06-08] MEDS: INSULIN LISPRO 100 UNITS/ML SUBCUT SCH ×2 (06:57→12:57)
[2020-06-08 07:19] LABS: BASOPHILS % 0.9 % (0.0-2.0); EOSINOPHILS % 1.9 % (0.0-5.0); HEMATOCRIT. 28.3 % (42.0-52.0); HEMOGLOBIN. 8.9 g/dL (14.0-18.0); LYMPHOCYTES % 9.3 % (20.0-50.0); MEAN CORPUSCULAR HEMOGLOBIN 25.1 pg (28.0-32.0); MEAN CORPUSCULAR VOLUME 79.8 fL (80.0-94.0); MEAN PLATELET VOLUME 8.5 fl (7.4-10.4); MONOCYTES % 10.7 % (2.0-8.0); NEUTROPHILS % 77.2 % (40.0-76.0); PLATELET 231 x1000/uL (130-400); RED BLOOD CELL COUNT 3.55 mill/uL (4.7-6.1); RED CELL DISTRIBUTION WIDTH 24.5 % (11.6-14.6)
[2020-06-08] MEDS: RIFAXIMIN 550 MG TABLET PO SCH (08:01)
[2020-06-08] MEDS: METOLAZONE 5MG TABLET PO SCH (08:01)
[2020-06-08] MEDS: FERROUS SULFATE 325MG TABLET PO SCH ×2 (08:01→12:57)
[2020-06-08] MEDS: APIXABAN 5 MG TABLET PO SCH (08:01)
[2020-06-08] MEDS: FUROSEMIDE 40MG/4ML VIAL IVP SCH (08:01)
[2020-06-08] MEDS: CARVEDILOL 12.5MG TABLET PO SCH (08:02)
[2020-06-08] MEDS: SILDENAFIL CITRATE 20MG TABLET PO SCH (08:02)
[2020-06-08] MEDS ORDERED: POTASSIUM CHLORIDE 20MEQ TABLET SR PO NR (10:00)
[2020-06-08] MEDS: PANTOPRAZOLE SODIUM 40 MG/VIAL IV SCH (12:57)
== END 2020-06-08 13:47 | disposition home or self-care (01) | DRG 171 ==
LOC: ER 16:10 → EDBEDREQ 16:58 → MICUSO 21:32 → EDBEDREQ 21:38 → 6WST 05-28 13:08 → 3WST 06-01 12:58 → CVICU 06-04 18:27 → 3WST 06-06 11:41
PROVIDERS: ADMIT Internal Medicine; ATTEND Internal Medicine
PROC: 30233N1 Transfusion of Nonautologous Red Blood Cells into Peripheral Vein, Percutaneous Approach (ICD-10-PCS; 2020-05-28)
PROC: 5A1D70Z Performance of Urinary Filtration, Intermittent, Less than 6 Hours Per Day (ICD-10-PCS; 2020-05-29)
PROC: 5A1D70Z Performance of Urinary Filtration, Intermittent, Less than 6 Hours Per Day (ICD-10-PCS; 2020-05-30)
PROC: 5A1D70Z Performance of Urinary Filtration, Intermittent, Less than 6 Hours Per Day (ICD-10-PCS; 2020-05-31)
PROC: 0JH604Z Insertion of Pacemaker, Single Chamber into Chest Subcutaneous Tissue and Fascia, Open Approach (ICD-10-PCS; principal; 2020-06-01)
PROC: 02HK3JZ Insertion of Pacemaker Lead into Right Ventricle, Percutaneous Approach (ICD-10-PCS; 2020-06-01)
PROC: B5161ZZ Fluoroscopy of Right Subclavian Vein using Low Osmolar Contrast (ICD-10-PCS; 2020-06-01)
PROC: 4A023N6 Measurement of Cardiac Sampling and Pressure, Right Heart, Percutaneous Approach (ICD-10-PCS; 2020-06-01)
PROC: 5A1D70Z Performance of Urinary Filtration, Intermittent, Less than 6 Hours Per Day (ICD-10-PCS; 2020-06-02)
PROC: 5A09357 Assistance with Respiratory Ventilation, Less than 24 Consecutive Hours, Continuous Positive Airway Pressure (ICD-10-PCS; 2020-06-03)
PROC: 5A09357 Assistance with Respiratory Ventilation, Less than 24 Consecutive Hours, Continuous Positive Airway Pressure (ICD-10-PCS; 2020-06-04)
PROC: B54MZZA Ultrasonography of Right Upper Extremity Veins, Guidance (ICD-10-PCS; 2020-06-06)
PROC: 05HY33Z Insertion of Infusion Device into Upper Vein, Percutaneous Approach (ICD-10-PCS; 2020-06-06)
PROC: 5A09357 Assistance with Respiratory Ventilation, Less than 24 Consecutive Hours, Continuous Positive Airway Pressure (ICD-10-PCS; 2020-06-06)
PROC: 5A09357 Assistance with Respiratory Ventilation, Less than 24 Consecutive Hours, Continuous Positive Airway Pressure (ICD-10-PCS; 2020-06-07)
DX: I49.5 Sick sinus syndrome (principal); I50.43 Acute on chronic combined systolic (congestive) and diastolic (congestive) heart failure; I13.0 Hypertensive heart and chronic kidney disease with heart failure and stage 1 through stage 4 chronic kidney disease, or unspecified chronic kidney disease; N17.9 Acute kidney failure, unspecified; D50.9 Iron deficiency anemia, unspecified; E11.22 Type 2 diabetes mellitus with diabetic chronic kidney disease; E46 Unspecified protein-calorie malnutrition; E78.5 Hyperlipidemia, unspecified; E83.39 Other disorders of phosphorus metabolism; E83.42 Hypomagnesemia; G40.909 Epilepsy, unspecified, not intractable, without status epilepticus; I48.20 Chronic atrial fibrillation, unspecified; N18.4 Chronic kidney disease, stage 4 (severe); I27.81 Cor pulmonale (chronic); I31.3 Pericardial effusion (noninflammatory); I42.9 Cardiomyopathy, unspecified; K74.60 Unspecified cirrhosis of liver; E87.5 Hyperkalemia; E87.1 Hypo-osmolality and hyponatremia; J96.22 Acute and chronic respiratory failure with hypercapnia; E66.2 Morbid (severe) obesity with alveolar hypoventilation; E87.2 Acidosis; I48.21 Permanent atrial fibrillation; I95.9 Hypotension, unspecified; F10.20 Alcohol dependence, uncomplicated; J96.21 Acute and chronic respiratory failure with hypoxia; M48.02 Spinal stenosis, cervical region; K92.2 Gastrointestinal hemorrhage, unspecified; J98.11 Atelectasis; I07.1 Rheumatic tricuspid insufficiency; I27.29 Other secondary pulmonary hypertension; E87.8 Other disorders of electrolyte and fluid balance, not elsewhere classified; I47.2 Ventricular tachycardia; Z79.01 Long term (current) use of anticoagulants; Z95.2 Presence of prosthetic heart valve; Z82.49 Family history of ischemic heart disease and other diseases of the circulatory system; Z99.2 Dependence on renal dialysis; Z79.82 Long term (current) use of aspirin; Z79.899 Other long term (current) drug therapy; Z68.37 Body mass index [BMI] 37.0-37.9, adult
CPT/HCPCS: 33207; 36415; 36600; 71045; 72192; 74018; 75820; 76700; 76937; 78580; 80048; 80053; 80061; 82140; 82270; 82375; 82607; 82728; 82746; 82805; 82962; 83036; 83540; 83550; 83735; 83880; 84100; 84145; 84443; 84484; 85014; 85018; 85025; 86850; 86900; 86920; 93005; 93306; 93451; 93970; 94640; 94660; 96374; 97116; 97162; 97166; 97530; 99285; C1725; C1769; C1786; C1893; C1898; C9113; J0690; J1200; J1580; J1644; J1815; J1940; J2250; J2405; J3010; J3490; P9016; Q9967

== ENCOUNTER 2022-05-21 16:55 | Emergency (ER) | payer MEDICAID ==
[~2022-05-21] VITALS: Ht 172.7 cm; Wt 109.0 kg
[~2022-05-21 16:55] MED LIST changes: -AMLO10TA80 PO; +APIX5TAB MT; -ASPI-1158 PO; +ASPI-1406 PO; +CARSR90 MT; -CARV25TA47 PO; +COR12 PO; -DIGO125T80 PO; +DILT180C66 MT; +DOCU250C14 MT; -ELIQUIS 5 MG PO; +FERR325T23 PO; +FURO-151 MT; -FURO80TA3 PO; -HYDR100T26 PO; +LIP40 PO; -LOSA100T32 PO; +REV20 MT; +REV20 PO
[2022-05-21] MEDS ORDERED: SODIUM CHLORIDE 0.9% 1,000 ML IV ONE ×2 (20:45→21:30)
[2022-05-21 20:53] LABS: BASOPHILS % 0.8 % (0.0-2.0); EOSINOPHILS % 0.8 % (0.0-5.0); HEMATOCRIT. 44.8 % (42.0-52.0); HEMOGLOBIN. 14.4 g/dL (14.0-18.0); LYMPHOCYTES % 18.4 % (20.0-50.0); MEAN CORPUSCULAR HEMOGLOBIN 28.7 pg (28.0-32.0); MEAN CORPUSCULAR VOLUME 89.2 fL (80.0-94.0); MEAN PLATELET VOLUME 10.3 fl (7.4-10.4); MONOCYTES % 6.9 % (2.0-8.0); NEUTROPHILS % 73.1 % (40.0-76.0); PLATELET 185 x1000/uL (130-400); RED BLOOD CELL COUNT 5.02 mill/uL (4.7-6.1); RED CELL DISTRIBUTION WIDTH 14.9 % (11.6-14.6)
[2022-05-21 20:59] LABS: CHLORIDE 90 mEq/L (98-107)
[2022-05-21 21:07] LABS: BETA HYDROXYBUTYRATE 0.1 mMol/L (0.0-0.3)
[2022-05-21] MEDS ORDERED: METF-414 MT (21:48)
[2022-05-21 22:39] VITALS: BP 118/76
== END 2022-05-21 23:07 | disposition home or self-care (01) ==
LOC: ER 16:55
DX: E11.65 Type 2 diabetes mellitus with hyperglycemia (principal); E86.0 Dehydration; N28.9 Disorder of kidney and ureter, unspecified; I11.0 Hypertensive heart disease with heart failure; I50.9 Heart failure, unspecified; Z79.899 Other long term (current) drug therapy
CPT/HCPCS: 36415; 80053; 82010; 82962; 85025; 96360; 99283; J7030

== ENCOUNTER 2022-06-03 08:33 | Emergency (ER) | payer MEDICAID ==
[~2022-06-03] VITALS: Ht 172.7 cm; Wt 109.0 kg
[~2022-06-03 08:33] MED LIST changes: +METF-414 MT
[2022-06-03 08:46] VITALS: BP 146/98
[2022-06-03 10:56] LABS: CHLORIDE 105 mEq/L (98-107)
[2022-06-03 10:57] LABS: BASOPHILS % 0.4 % (0.0-2.0); EOSINOPHILS % 0.5 % (0.0-5.0); HEMATOCRIT. 39.1 % (42.0-52.0); HEMOGLOBIN. 12.7 g/dL (14.0-18.0); LYMPHOCYTES % 9.4 % (20.0-50.0); MEAN CORPUSCULAR HEMOGLOBIN 29.2 pg (28.0-32.0); MEAN CORPUSCULAR VOLUME 90.3 fL (80.0-94.0); MEAN PLATELET VOLUME 8.9 fl (7.4-10.4); MONOCYTES % 5.7 % (2.0-8.0); PLATELET 194 x1000/uL (130-400); RED BLOOD CELL COUNT 4.33 mill/uL (4.7-6.1); RED CELL DISTRIBUTION WIDTH 15.6 % (11.6-14.6)
[2022-06-03] MEDS ORDERED: NAPROXEN 375MG TABLET PO ONE (12:15)
[2022-06-03] MEDS ORDERED: COLCHICINE 0.6MG TABLET PO ONE (12:15)
[2022-06-03] MEDS ORDERED: NAPR375T5 MT (12:23)
== END 2022-06-03 12:47 | disposition home or self-care (01) ==
LOC: ER 08:33
DX: M10.072 Idiopathic gout, left ankle and foot (principal); I13.0 Hypertensive heart and chronic kidney disease with heart failure and stage 1 through stage 4 chronic kidney disease, or unspecified chronic kidney disease; I50.9 Heart failure, unspecified; E11.22 Type 2 diabetes mellitus with diabetic chronic kidney disease; N18.9 Chronic kidney disease, unspecified
CPT/HCPCS: 36415; 73630; 80053; 83880; 84550; 85025; 93971; 99285

== ENCOUNTER 2023-01-17 12:48 | Inpatient (IN) | payer MEDICAID ==
[~2023-01-17] VITALS: Ht 172.7 cm; Wt 103.5 kg
[~2023-01-17 12:48] MED LIST changes: +NAPR375T5 MT
[2023-01-17 16:20] LABS: BASOPHILS % 0.8 % (0.0-2.0); EOSINOPHILS % 0.4 % (0.0-5.0); HEMATOCRIT. 34.8 % (42.0-52.0); HEMOGLOBIN. 10.6 g/dL (14.0-18.0); LYMPHOCYTES % 12.6 % (20.0-50.0); MEAN CORPUSCULAR HEMOGLOBIN 24.4 pg (28.0-32.0); MEAN CORPUSCULAR VOLUME 80.2 fL (80.0-94.0); MEAN PLATELET VOLUME 9.4 fl (7.4-10.4); MONOCYTES % 8.4 % (2.0-8.0); NEUTROPHILS % 77.8 % (40.0-76.0); PLATELET 269 x1000/uL (130-400); RED BLOOD CELL COUNT 4.33 mill/uL (4.7-6.1); RED CELL DISTRIBUTION WIDTH 20.8 % (11.6-14.6)
[2023-01-17 16:44] LABS: CHLORIDE 106 mEq/L (98-107)
[2023-01-17] MEDS ORDERED: FUROSEMIDE 40MG/4ML VIAL IVP NR (18:30)
[2023-01-17 21:12] LABS: CLARITY URINE CLEAR (CLEAR); COLOR URINE DARK YELLOW (YELLOW); KETONES URINE NEGATIVE (NEGATIVE); LEUKOCYTE ESTERASE URINE NEGATIVE (NEGATIVE); NITRITE URINE NEGATIVE (NEGATIVE); OCCULT BLOOD URINE NEGATIVE (NEGATIVE); PROTEIN URINE 2+ (NEGATIVE); SPECIFIC GRAVITY URINE 1.015 (1.005-1.030)
[2023-01-17 23:00] VITALS: BP 122/78
[2023-01-18] VITALS (8 sets, daily range): BP systolic 100–131; BP diastolic 40–91
[2023-01-18] MEDS ORDERED: DEXTROSE 50% WATER 50ML SYRINGE IV PRN
[2023-01-18] MEDS ORDERED: *PATIENT'S OWN MEDICATION STORAGE XX SCH (02:00)
[2023-01-18] MEDS: BLOOD SUGAR DIAGNOSTIC STRIP TEST SCH ×4 (05:50→21:00)
[2023-01-18 06:37] LABS: HEMATOCRIT 35.7 % (42.0-52.0); HEMOGLOBIN 10.9 g/dL (14.0-18.0); MEAN CORPUSCULAR HEMOGLOBIN 24.4 pg (28.0-32.0); MEAN CORPUSCULAR VOLUME 80.1 fL (80.0-94.0); PLATELET 207 x1000/uL (130-400); RED BLOOD CELL COUNT 4.47 mill/uL (4.7-6.1); RED CELL DISTRIBUTION WIDTH 20.5 % (11.6-14.6)
[2023-01-18] MEDS: INSULIN LISPRO 100 UNITS/ML SUBCUT SCH ×4 (06:42→21:00)
[2023-01-18] MEDS: FUROSEMIDE 40MG/4ML VIAL IVP SCH ×2 (08:42→17:25)
[2023-01-18] MEDS: DOCUSATE SODIUM 250MG CAPSULE PO SCH ×2 (08:47→17:27)
[2023-01-18] MEDS: METOPROLOL TARTRATE 50MG TABLET PO SCH ×2 (08:47→17:27)
[2023-01-18] MEDS: HYDRALAZINE HCL 50MG TABLET PO SCH ×3 (08:47→17:27)
[2023-01-18] MEDS ORDERED: NALOXONE HCL 0.4MG/ML VIAL IV PRN (09:15)
[2023-01-18] MEDS: HYDROCODONE/ACETAMINOPHEN 5/325MG TABLET PO PRN (10:06)
[2023-01-18] MEDS ORDERED: METOLAZONE 2.5MG TABLET PO NR (15:45)
[2023-01-18] MEDS: ENOXAPARIN 40MG/0.4ML SYR SUBCUT SCH ×2 (17:00→17:28)
[2023-01-18] MEDS: ATORVASTATIN CALCIUM 40MG TABLET PO SCH (21:31)
[2023-01-19] VITALS: BP 130/90
[2023-01-19 04:00] VITALS: BP 131/96
[2023-01-19] MEDS: BLOOD SUGAR DIAGNOSTIC STRIP TEST SCH ×4 (05:42→21:00)
[2023-01-19] MEDS: INSULIN LISPRO 100 UNITS/ML SUBCUT SCH ×4 (06:03→21:42)
[2023-01-19 08:00] VITALS: BP 115/85
[2023-01-19] MEDS: FUROSEMIDE 40MG/4ML VIAL IVP SCH ×2 (09:28→17:06)
[2023-01-19] MEDS: DOCUSATE SODIUM 250MG CAPSULE PO SCH ×2 (09:29→18:17)
[2023-01-19] MEDS: HYDRALAZINE HCL 50MG TABLET PO SCH ×3 (09:29→18:17)
[2023-01-19] MEDS: METOPROLOL TARTRATE 50MG TABLET PO SCH ×2 (09:29→18:17)
[2023-01-19] MEDS: HYDROCODONE/ACETAMINOPHEN 5/325MG TABLET PO PRN (10:55)
[2023-01-19 12:00] VITALS: BP 109/64
[2023-01-19 16:53] VITALS: BP 131/76
[2023-01-19 20:00] VITALS: BP 130/67
[2023-01-19] MEDS: ATORVASTATIN CALCIUM 40MG TABLET PO SCH (21:42)
[2023-01-19 23:33] LABS: INR 1.2; PARTIAL THROMBOPLASTIN TIME 25.5 sec (23.4-31.0); PROTHROMBIN TIME 12.6 sec (9.6-11.0)
[2023-01-20] VITALS: BP 126/69
[2023-01-20 04:00] VITALS: BP 152/97
[2023-01-20] MEDS: BLOOD SUGAR DIAGNOSTIC STRIP TEST SCH ×4 (05:24→21:00)
[2023-01-20] MEDS: INSULIN LISPRO 100 UNITS/ML SUBCUT SCH ×4 (05:34→21:00)
[2023-01-20] MEDS ORDERED: METOLAZONE 2.5MG TABLET PO SCH (07:30)
[2023-01-20 08:00] VITALS: BP 138/87
[2023-01-20] MEDS: HYDRALAZINE HCL 50MG TABLET PO SCH ×3 (09:43→17:55)
[2023-01-20] MEDS: METOPROLOL TARTRATE 50MG TABLET PO SCH ×2 (09:43→17:55)
[2023-01-20] MEDS: FUROSEMIDE 40MG/4ML VIAL IVP SCH ×2 (09:44→17:54)
[2023-01-20] MEDS: DOCUSATE SODIUM 250MG CAPSULE PO SCH ×2 (09:44→17:54)
[2023-01-20 12:00] VITALS: BP 125/73
[2023-01-20 16:00] VITALS: BP 133/79
[2023-01-20] MEDS: ACETAMINOPHEN 650MG/20.3ML UDC PO PRN (17:54)
[2023-01-20] MEDS: ATORVASTATIN CALCIUM 40MG TABLET PO SCH (22:53)
[2023-01-21] MEDS: BLOOD SUGAR DIAGNOSTIC STRIP TEST SCH ×4 (07:10→21:43)
[2023-01-21] MEDS: INSULIN LISPRO 100 UNITS/ML SUBCUT SCH ×4 (07:10→21:00)
[2023-01-21] MEDS ORDERED: LIDOCAINE HCL/PF 1% 2ML VIAL ONE (11:45)
[2023-01-21] MEDS ORDERED: METOLAZONE 2.5MG TABLET PO SCH (12:00)
[2023-01-21 12:27] LABS: BG BASE EXCESS 9.2 mmol/L (-2.0-2.0); BG DEOXYHEMOGLOBIN 7.3 % (0.0-5.0); BG FRACTION INSPIRED OXYGEN 21; BG HCO3 ACT 33.9 mmol/L (22.0-26.0); BG METHEMOGLOBIN 0.7 % (0.0-1.5); BG OXYGEN SATURATION 92.6 % (92.0-98.5); BG PCO2 46.9 mmHg (35.0-45.0); BG PH 7.477 (7.350-7.450); BG PO2 64.7 mmHg (75.0-100.0); BG SAMPLE SITE RIGHT RADIAL; BG TOTAL HEMOGLOBIN 11.9 g/dL (12.0-18.0); BG VENT MODE ROOM AIR
[2023-01-21] MEDS: HYDRALAZINE HCL 50MG TABLET PO SCH ×3 (12:46→20:57)
[2023-01-21] MEDS: DOCUSATE SODIUM 250MG CAPSULE PO SCH ×2 (12:46→20:57)
[2023-01-21] MEDS: METOPROLOL TARTRATE 50MG TABLET PO SCH ×2 (12:47→20:58)
[2023-01-21 20:00] VITALS: BP 119/69
[2023-01-21] MEDS: FUROSEMIDE 100MG/10ML VIAL IVP SCH (20:57)
[2023-01-21] MEDS: ATORVASTATIN CALCIUM 40MG TABLET PO SCH (21:44)
[2023-01-22] VITALS: BP 129/83
[2023-01-22 04:00] VITALS: BP 126/78
[2023-01-22] MEDS: INSULIN LISPRO 100 UNITS/ML SUBCUT SCH ×4 (06:54→21:00)
[2023-01-22] MEDS: BLOOD SUGAR DIAGNOSTIC STRIP TEST SCH ×4 (06:54→21:00)
[2023-01-22 08:00] VITALS: BP 151/97
[2023-01-22] MEDS: DOCUSATE SODIUM 250MG CAPSULE PO SCH ×2 (09:00→17:00)
[2023-01-22] MEDS: FUROSEMIDE 100MG/10ML VIAL IVP SCH ×2 (09:41→18:17)
[2023-01-22] MEDS: HYDRALAZINE HCL 50MG TABLET PO SCH ×3 (09:42→17:55)
[2023-01-22] MEDS: METOPROLOL TARTRATE 50MG TABLET PO SCH ×2 (09:42→17:55)
[2023-01-22 12:00] VITALS: BP 116/77
[2023-01-22 16:30] VITALS: BP 136/84
[2023-01-22] MEDS: ACETAMINOPHEN 650MG/20.3ML UDC PO PRN (18:03)
[2023-01-22 20:00] VITALS: BP 122/76
[2023-01-22] MEDS: ATORVASTATIN CALCIUM 40MG TABLET PO SCH (21:42)
[2023-01-23] VITALS: BP 126/81
[2023-01-23 04:00] VITALS: BP 154/109
[2023-01-23 05:30] VITALS: BP 154/109
[2023-01-23] MEDS: BLOOD SUGAR DIAGNOSTIC STRIP TEST SCH ×2 (07:55→13:04)
[2023-01-23 08:00] VITALS: BP 135/80
[2023-01-23] MEDS: DOCUSATE SODIUM 250MG CAPSULE PO SCH (09:00)
[2023-01-23] MEDS: FUROSEMIDE 100MG/10ML VIAL IVP SCH (09:52)
[2023-01-23] MEDS: HYDRALAZINE HCL 50MG TABLET PO SCH ×2 (09:52→12:59)
[2023-01-23] MEDS: METOPROLOL TARTRATE 50MG TABLET PO SCH (09:52)
[2023-01-23] MEDS ORDERED: METO2.5T2 MT (10:01)
[2023-01-23] MEDS ORDERED: FURO80TA87 MT (10:01)
[2023-01-23] MEDS ORDERED: POTA-205 MT (10:01)
[2023-01-23] MEDS: INSULIN LISPRO 100 UNITS/ML SUBCUT SCH ×2 (10:02→12:10)
[2023-01-23] MEDS ORDERED: POTASSIUM CHLORIDE 20MEQ TABLET SR PO SCH (10:15)
[2023-01-23 12:00] VITALS: BP 122/65
[2023-01-23 12:20] VITALS: BP 122/65
== END 2023-01-23 14:30 | disposition home or self-care (01) | DRG 133 ==
LOC: ER 12:48 → 7EST 18:28 → EDBEDREQ 18:31 → EDBEDREQTM 18:31 → ENRESERV 20:47
PROVIDERS: ADMIT Internal Medicine; ATTEND Internal Medicine
PROC: 0W9B3ZZ Drainage of Left Pleural Cavity, Percutaneous Approach (ICD-10-PCS; principal; 2023-01-21)
DX: J96.01 Acute respiratory failure with hypoxia (principal); I50.43 Acute on chronic combined systolic (congestive) and diastolic (congestive) heart failure; N17.9 Acute kidney failure, unspecified; I27.20 Pulmonary hypertension, unspecified; E11.22 Type 2 diabetes mellitus with diabetic chronic kidney disease; D64.9 Anemia, unspecified; I48.91 Unspecified atrial fibrillation; N18.9 Chronic kidney disease, unspecified; I13.0 Hypertensive heart and chronic kidney disease with heart failure and stage 1 through stage 4 chronic kidney disease, or unspecified chronic kidney disease; Z20.822 Contact with and (suspected) exposure to COVID-19; R74.01 Elevation of levels of liver transaminase levels; I49.3 Ventricular premature depolarization; Z95.0 Presence of cardiac pacemaker; Z95.2 Presence of prosthetic heart valve; Z79.899 Other long term (current) drug therapy; Z79.4 Long term (current) use of insulin
CPT/HCPCS: 32555; 36415; 36600; 71045; 76604; 76705; 80048; 80053; 81003; 82040; 82375; 82805; 82962; 83036; 83615; 83880; 83986; 84484; 85025; 85027; 85379; 87426; 88108; 93005; 93306; 93970; 99285; C1893; J1650; J1815; J1940; J3490